=== PATIENT | male | born 1990 | race African-American/Black ===

== ENCOUNTER 2016-12-15 23:08 | Emergency (ER) | payer MEDICAID ==
[~2016-12-15] VITALS: Ht 165.1 cm; Wt 59.0 kg
[2016-12-16 01:44] VITALS: BP 118/66
[2016-12-16] MEDS ORDERED: DiphenhydrAMINE HCL 25 MG CAPSULE PO ONE (01:45)
== END 2016-12-16 01:55 | disposition home or self-care (01) ==
LOC: EMS 23:10
DX: J06.9 Acute upper respiratory infection, unspecified (principal); H66.92 Otitis media, unspecified, left ear; J45.909 Unspecified asthma, uncomplicated; Z88.6 Allergy status to analgesic agent
CPT/HCPCS: 99282; 99283

== ENCOUNTER 2017-01-01 18:41 | Emergency (ER) | payer MEDICAID ==
[~2017-01-01] VITALS: Ht 165.1 cm; Wt 59.0 kg
[2017-01-01] MEDS ORDERED: PSEU-191 PO (18:47)
[2017-01-01 21:16] LABS: INFLUENZA TYPE B NEGATIVE FOR TYPE B (NEGATIVE)
[2017-01-01 21:26] VITALS: BP 122/74
== END 2017-01-01 21:27 | disposition home or self-care (01) ==
LOC: EMS 18:44
DX: J45.909 Unspecified asthma, uncomplicated (principal); Z88.6 Allergy status to analgesic agent
CPT/HCPCS: 71020; 87804; 99285

== ENCOUNTER 2017-11-27 09:14 | Emergency (ER) | payer MEDICAID ==
[~2017-11-27] VITALS: Ht 165.1 cm; Wt 59.1 kg
[~2017-11-27 09:14] MED LIST: PSEU-191 PO
[2017-11-27] MEDS ORDERED: ALBU8HFA IH (09:31)
[2017-11-27 10:16] VITALS: BP 130/87
[2017-11-27] MEDS ORDERED: IBUPROFEN 800 MG TABLET PO ONE (10:45)
== END 2017-11-27 10:56 | disposition left against medical advice (07) ==
LOC: EMS 09:18
DX: K01.1 Impacted teeth (principal); K08.89 Other specified disorders of teeth and supporting structures; F32.9 Major depressive disorder, single episode, unspecified; J45.909 Unspecified asthma, uncomplicated; Z88.6 Allergy status to analgesic agent
CPT/HCPCS: 99281

== ENCOUNTER 2018-10-22 18:43 | Emergency (ER) | payer MEDICAID ==
[~2018-10-22] VITALS: Ht 165.1 cm; Wt 57.8 kg
[~2018-10-22 18:43] MED LIST changes: +ALBU8HFA IH; -PSEU-191 PO
[2018-10-22 19:02] VITALS: BP 115/75
[2018-10-22] MEDS ORDERED: ACETAMINOPHEN 500 MG TABLET PO ONE (19:30)
== END 2018-10-22 21:28 | disposition home or self-care (01) ==
LOC: EMS 18:44
DX: S62.336A Displaced fracture of neck of fifth metacarpal bone, right hand, initial encounter for closed fracture (principal); F12.90 Cannabis use, unspecified, uncomplicated; Z88.6 Allergy status to analgesic agent; W20.8XXA Other cause of strike by thrown, projected or falling object, initial encounter; Y93.89 Activity, other specified; Y92.098 Other place in other non-institutional residence as the place of occurrence of the external cause; Y99.8 Other external cause status

== ENCOUNTER 2018-10-24 23:35 | Emergency (ER) | payer MEDICAID ==
[~2018-10-24] VITALS: Ht 165.1 cm; Wt 60.5 kg
[2018-10-25] MEDS ORDERED: OxyCODONE HCL/ACETAMINOPHEN 5-325 MG TABLET PO ONE (01:30)
[2018-10-25 02:54] VITALS: BP 124/69
== END 2018-10-25 02:55 | disposition home or self-care (01) ==
LOC: EMS 23:38
DX: S62.91XD Unspecified fracture of right hand, subsequent encounter for fracture with routine healing (principal); F12.90 Cannabis use, unspecified, uncomplicated; Z88.6 Allergy status to analgesic agent; X58.XXXD Exposure to other specified factors, subsequent encounter

== ENCOUNTER 2019-04-10 19:57 | Emergency (ER) | payer MEDICAID ==
[~2019-04-10] VITALS: Ht 165.1 cm; Wt 59.1 kg
[2019-04-10] MEDS ORDERED: ACETAMINOPHEN 325 MG TABLET PO ONE (21:30)
[2019-04-10] MEDS ORDERED: ONDANSETRON HCL 4 MG TABLET PO ONE (21:30)
[2019-04-10] MEDS ORDERED: LOPERAMIDE HCL 2 MG CAPSULE PO ONE (21:30)
[2019-04-10 23:00] VITALS: BP 136/74
== END 2019-04-10 23:38 | disposition home or self-care (01) ==
LOC: EMS 20:13
DX: K52.9 Noninfective gastroenteritis and colitis, unspecified (principal); F12.90 Cannabis use, unspecified, uncomplicated; Z88.6 Allergy status to analgesic agent
CPT/HCPCS: 99284; Q0162

== ENCOUNTER 2021-08-12 09:47 | Emergency (ER) | payer MEDICAID ==
[~2021-08-12] VITALS: Ht 165.1 cm; Wt 56.8 kg
[2021-08-12] MEDS ORDERED: PHEN-748 PO (09:49)
[2021-08-12 12:14] LABS: COVID AG,FIA SOURCE NASOPHARYNGEAL
[2021-08-12] MEDS ORDERED: ACETAMINOPHEN 500 MG TABLET PO ONE (12:15)
[2021-08-12 12:46] LABS: INFLUENZA TYPE A NEGATIVE FOR TYPE A (NEGATIVE); INFLUENZA TYPE B NEGATIVE FOR TYPE B (NEGATIVE)
[2021-08-12 13:24] VITALS: BP 111/63
== END 2021-08-12 13:35 | disposition home or self-care (01) ==
LOC: EMS 09:50
DX: U07.1 COVID-19 (principal); K08.89 Other specified disorders of teeth and supporting structures; F12.90 Cannabis use, unspecified, uncomplicated; Z88.6 Allergy status to analgesic agent
CPT/HCPCS: 87804; 99283

== ENCOUNTER 2022-09-20 09:24 | Emergency (ER) | payer MEDICAID ==
[~2022-09-20] VITALS: Ht 165.1 cm; Wt 56.8 kg
[~2022-09-20 09:24] MED LIST changes: -ALBU8HFA IH; +PHEN-748 PO
[2022-09-20] MEDS ORDERED: SODIUM CHLORIDE 0.9% 1,000 ML IV ONE (11:45)
[2022-09-20] MEDS ORDERED: FAMOTIDINE 40 MG in SODIUM CHLORIDE 0.9% 100 ML IV ONE (11:45)
[2022-09-20] MEDS ORDERED: SODIUM CHLORIDE 0.9% 100 ML ONE (11:53)
[2022-09-20] MEDS ORDERED: FAMOTIDINE 10 MG/ML 2 ML VIAL ONE (11:54)
[2022-09-20 12:11] LABS: BASOPHILS % (AUTO) 0.1 % (0.0-2.0); EOSINOPHILS % (AUTO) 0.1 % (1.0-6.0); HEMATOCRIT 41.5 % (41-53); LYMPHOCYTES # (AUTO) 1.1 K/uL (1.0-4.8); LYMPHOCYTES % (AUTO) 9.4 % (22.0-44.0); MEAN CORPUSCULAR HEMOGLOBIN 30.6 pg (26.0-34.0); MEAN CORPUSCULAR HGB CONC 33.8 G/dL (31.0-37.0); MEAN CORPUSCULAR VOLUME 91 fL (80-100); MONOCYTES # (AUTO) 0.9 K/uL (0.1-1.0); NEUTROPHILS # (AUTO) 9.3 K/uL (1.8-7.7); NEUTROPHILS % (AUTO) 82.4 % (40.0-70.0); PLATELET COUNT (AUTO) 247 K/uL (150-450); RED BLOOD CELL COUNT(AUTO) 4.58 MIL/uL (4.50-5.90)
[2022-09-20 12:16] LABS: ANION GAP 8 mmol/L (8-16); CALCIUM, TOTAL 9.6 mg/dL (8.8-10.5); CARBON DIOXIDE 30 mmol/L (22-29); CHLORIDE 102 mmol/L (98-107); GLOMERULAR FILTR. RATE CALC > 60 mL/min (>60); GLUCOSE,RANDOM 98 mg/dL (70-110); POTASSIUM 3.9 mmol/L (3.5-5.1); SODIUM SERUM 140 mmol/L (136-145); UREA NITROGEN, BLOOD 13 mg/dL (7-18)
[2022-09-20 12:22] LABS: ALANINE AMINOTRANSFERASE 19 U/L (12-78); ALBUMIN 4.3 g/dL (3.4-5.0); ALKALINE PHOSPHATASE 69 U/L (46-116); ASPARTATE AMINOTRANSFERASE 26 U/L (15-37); BILIRUBIN,TOTAL 1.3 mg/dL (0.1-1.0); LIPASE 62 U/L (73-393); TOTAL PROTEIN, SERUM 8.3 g/dL (6.4-8.2)
[2022-09-20 14:00] VITALS: BP 114/62
[2022-09-20] MEDS ORDERED: METOCLOPRAMIDE HCL 5 MG/ML 2 ML VIAL IVP ONE (14:00)
== END 2022-09-20 14:22 | disposition home or self-care (01) ==
LOC: EMS 09:28
DX: K52.9 Noninfective gastroenteritis and colitis, unspecified (principal); F12.90 Cannabis use, unspecified, uncomplicated; Z88.6 Allergy status to analgesic agent
CPT/HCPCS: 99284; 96365; 96375; 80053; 83690; 85025; 93005; J3490; J2765; J7030; J7050

== ENCOUNTER 2022-10-16 16:22 | Emergency (ER) | payer MEDICAID ==
[~2022-10-16] VITALS: Ht 165.1 cm; Wt 56.8 kg
[2022-10-16 16:33] VITALS: BP 108/58
[2022-10-16 16:42] LABS: COVID AG,FIA SOURCE NASAL SWAB
[2022-10-16 17:01] LABS: INFLUENZA TYPE A NEGATIVE FOR TYPE A (NEGATIVE); INFLUENZA TYPE B NEGATIVE FOR TYPE B (NEGATIVE)
[2022-10-16] MEDS ORDERED: BENZ-227 PO (19:38)
[2022-10-16] MEDS ORDERED: ACETAMINOPHEN 325 MG TABLET PO ONE (19:45)
== END 2022-10-16 19:42 | disposition home or self-care (01) ==
LOC: EMS 16:26
DX: B34.9 Viral infection, unspecified (principal); F12.90 Cannabis use, unspecified, uncomplicated; Z20.822 Contact with and (suspected) exposure to COVID-19; Z88.6 Allergy status to analgesic agent
CPT/HCPCS: 87804; 99283